=== PATIENT | male | born 1990 | race Caucasian/White ===

== ENCOUNTER 2018-08-22 10:32 | Emergency (ER) | payer MEDICAID ==
[~2018-08-22] VITALS: Ht 175.3 cm; Wt 68.0 kg
[2018-08-22] MEDS ORDERED: FLUORESCEIN SODIUM 1 MG OPHTHALMIC STRIP OP ONE (10:33)
[2018-08-22] MEDS ORDERED: TETRACAINE HCL 0.5% OPHTHALMIC DROPS 15 ML OP ONE ×2 (10:33→11:00)
[2018-08-22] MEDS ORDERED: BALANCED SALT IRRIG SOLN 15 ML IO ONE (10:33)
[2018-08-22 10:44] VITALS: BP_SYST 141
[2018-08-22 11:40] VITALS: BP_SYST 141
== END 2018-08-22 11:40 | disposition home or self-care (01) ==
LOC: SED 10:32
DX: S05.02XA Injury of conjunctiva and corneal abrasion without foreign body, left eye, initial encounter (principal); H16.002 Unspecified corneal ulcer, left eye; R03.0 Elevated blood-pressure reading, without diagnosis of hypertension; X58.XXXA Exposure to other specified factors, initial encounter; Y93.89 Activity, other specified; Y92.89 Other specified places as the place of occurrence of the external cause; Y99.8 Other external cause status
CPT/HCPCS: 99283